=== PATIENT | male | born 1945 | race Caucasian/White ===

== ENCOUNTER 2019-09-16 08:52 | Emergency (ER) | payer OTHER, SELFPAY ==
[2019-09-16 08:59] VITALS: BP 145/84; PULSE 56; RESP 16; TEMP 36.6; O2SAT 100
--- NOTE | 2019-09-16 09:02 | ED.GENADUL_ITS ---
Discharge Plan Disposition Patient Disposition: HOME Condition: Stable Discharge Details Chief Complaint: Orthopedic Clinical Impression: Suprapatellar effusion of knee, S/P arthrocentesis Primary Care Provider: Greta,Local ED Provider: Radha Miller Home Meds and New Rx's Prescriptions: No Action No Known Home Meds RF: 0 Discharge Instructions Instructions: Swollen Knee Joint (ED), Joint Aspiration (DC) Additional Instructions: Rest, ice, and elevate the affected area as much as possible. Alternate tylenol and motrin as needed and directed for pain. You can wash the area with soap and water. Keep covered with Carmine wrap to help with compression as much as possible. Follow-up with orthopedics if you have no relief or worsening of symptoms in the next 1 to 2 weeks. Return to the emergency department with any worsening or new concerning symptoms. Referrals: Jag White MD [ [facility] STAFF PHYSICIAN] - Discharge Data Discharge Date/Time-TO BE ENTERED AT DEPARTURE: 09/16/19 11:14 Discharge Physician: Radha Miller Medical Decision Making 74-year-old male presents for right knee pain and swelling after going running 5 days ago. Right knee anterior edema, most prominent suprapatellar and infrapatellar. No ligamentous instability. Neurovascularly intact. No evidence of trauma or cellulitis. Suspect knee strain/sprain. History and presentation not c/w septic arthritis, dvt. Patient referred for x-ray which noted effusion. Pt agreeable to plan for arthrocentesis which was performed at bedside. Please see procedure note for details. Fluid appeared yellowish-brown and minimally cloudy. Depo-Medrol injected into right knee. Do not see an indication for antibiotics. Injection site covered with Band-Aid. Patient was able to weight-bear with improvement of symptoms after arthrocentesis. An Carmine wrap was applied to the right knee. Advised to follow- up with Ortho if symptoms do not improve. Usual and customary return precautions given prior to discharge. Medical Records Medical records reviewed: Yes I reviewed the patient's medical records. Imaging Data Radiologic Study: Radiologist's impression: XR Left Knee Exam date and time: 09/16/2019 9:35 AM Age: 74 years old Clinical indication: Other: R knee swelling, pain, suspect effusion TECHNIQUE: Imaging protocol: XR Left knee. Views: 4 or more views. COMPARISON: No relevant prior studies available. FINDINGS: Bones/joints: No acute fracture or dislocation. Large suprapatellar joint effusion. Soft tissues: Normal. IMPRESSION: 1. No acute fracture or dislocation. 2. Large suprapatellar joint effusion. HPI General Mode of arrival: ambulatory . Date/Time Provider Initiated Documentation: 09/16/19 08:53 . Limitations to Documentation: no limitations . Information obtained by: patient . HPI Narrative: Patient is a 74-year-old male who presents with right knee pain and swelling for the past 5 days after he went running. He denies any known specific injury but states he has developed some pain since then and now worsening swelling today. He is having increased pain with weightbearing and walking. He has taken Advil without relief. Denies any calf pain or swelling. Related Data Home Medications Medication Instructions Recorded Confirmed Unknown [No Known Home Meds] 09/16/19 09/16/19 Allergies Allergy/AdvReac Type Severity Reaction Status Date / Time gluten Allergy GI and Unverified 09/16/19 08:58 Skin issues Review of Systems All systems reviewed & are unremarkable except as noted in HPI and below Constitutional Constitutional: Reports as per HPI, Denies chills and Denies fever(s) Eyes Eyes: Denies blurry vision ENT Ears, Nose, Mouth, and Throat: Denies dizziness, Denies sore throat and Denies throat swelling Cardiovascular Cardiovascular: Denies chest pain and Denies dyspnea Respiratory Respiratory: Denies cough and Denies dyspnea Gastrointestinal Gastrointestinal: Denies abdominal pain, Denies diarrhea and Denies vomiting Genitourinary Genitourinary: Denies hematuria and Denies dysuria Musculoskeletal Musculoskeletal: Denies back pain and Denies numbness Integumentary/Breasts Skin/Breast: Denies lesions and Denies rash Neurologic Neurologic: Denies dizziness, Denies localized weakness and Denies numbness Allergic/Immunologic Allergic/Immunologic: Denies throat swelling [facility] Medical History (Updated 09/16/19 @ 10:57 by Radha Miller DO) No significant past medical history (Acute) Surgical History (Updated 09/16/19 @ 10:57 by Radha Miller DO) No significant past surgical history (Acute) Social History Smoking/Tobacco Use Status: Never Alcohol Intake: current Alcohol Intake frequency: 0-2 drinks per day Alcohol type: wine Substance use type: does not use Do you feel safe at home: Yes Do you feel safe in your relationship?: Yes Exam Const General: cooperative, healthy appearing and no acute distress HENMT Head: normal to inspection Mouth: oral mucosae normal Eyes General: appearance normal, both eyes and all related structures Neck Neck: normal visual inspection Resp Effort & Inspection: normal respiratory effort and able to speak in complete sentences Cardio Rate: regular rate Skin General skin exam: no rashes or lesions noted Neuro General: patient alert, patient awake and patient oriented x3 Motor: muscle tone normal throughout Extrem Other: Right lower extremity: Right anterior knee edema noted suprapatellar and infrapatellar. Pain with range of motion at right knee, more specifically flexion. Negative anterior and posterior drawer test. No pain with valgus or varus stress. No obvious ligamentous instability. No pain with range of motion at right hip or right ankle. No calf tenderness or lower leg edema. Right DP/PT pulses intact. Psych Appearance: grossly normal Affect: normal affect Procedures Joint Aspiration/Injection Joint Asp./Inject. 1: Time Out Performed: Yes Side of body: right Joint Aspirated: knee Ultrasound Guidance: No Skin Prep: Chlorhexidene Local Anesthetic: Lidocaine 1% Amount of anesthesia used (mL): 5 Needle Size Used: 18G Fluid Obtained: turbid Total fluid obtained (mL): 75 Medication Injected, if any: Methylprednisolone Amount of Medication Injected (mls): 1 Patient Tolerated Procedure: well Complications: none
--- NOTE | 2019-09-16 09:35 | DI.RAD_ITS ---
EXAM: XR KNEE RT 4V AP,LAT,JOSSELIN,PAT CLINICAL HISTORY: R knee swelling, pain, suspect effusion. TECHNIQUE: 2D digital imaging was performed. COMPARISON: No exams were available for comparison FINDINGS: BONES: No acute fracture is present. No bony destructive lesion is seen. JOINTS: The knee is normally aligned. Large suprapatellar joint effusion. SOFT TISSUE: Normal. IMPRESSION: Large suprapatellar joint effusion. DATA REPOSITORY: RADIATION DOSE DELIVERED:
--- NOTE | 2019-09-16 10:02 | DI.VRAD_ITS ---
PROCEDURE INFORMATION: Exam: XR Left Knee Exam date and time: 09/16/2019 9:35 AM Age: 74 years old Clinical indication: Other: R knee swelling, pain, suspect effusion TECHNIQUE: Imaging protocol: XR Left knee. Views: 4 or more views. COMPARISON: No relevant prior studies available. FINDINGS: Bones/joints: No acute fracture or dislocation. Large suprapatellar joint effusion. Soft tissues: Normal. IMPRESSION: 1. No acute fracture or dislocation. 2. Large suprapatellar joint effusion. Dictated and Authenticated by: Nia Granados MD. Ordering:CHRISTIAN Garcia MD
[2019-09-16] MEDS: Lidocaine 1% Multi-Dose 50 ML VIAL (10:57)
[2019-09-16] MEDS: methylPREDNISolone ACETATE 80 MG/ML VIAL IJ (10:58)
[2019-09-16 12:04] LABS: Clarity Cloudy; Source R KNEE
[2019-09-16 12:12] LABS: Nucleated Cells 19870 /MM3 (0-0)
[2019-09-16 12:44] LABS: Mononuclear Cells 3 % (0-0); Polynuclear Cells 97 % (0-0)
== END 2019-09-16 11:14 | disposition home or self-care (01) ==
LOC: ER 11:05
PROVIDERS: Emergency Provider Physician Assistant
DX: M25.461 Effusion, right knee (principal)
CPT/HCPCS: 20610; 99283; 73564; 87070; 87205; 89051; J1040; J3490

== ENCOUNTER 2019-09-26 13:54 | Emergency (ER) | payer OTHER, SELFPAY ==
[2019-09-26 14:08] VITALS: BP 131/78; PULSE 61; RESP 16; TEMP 36.5; O2SAT 99
--- NOTE | 2019-09-26 14:33 | W.ED.GENAD ---
Discharge Plan Disposition Patient Disposition: HOME Condition: Good Discharge Details Chief Complaint: Orthopedic Clinical Impression: S/P arthrocentesis, Effusion, right knee Primary Care Provider: Greta,Local ED Provider: Jessica Orozco Home Meds and New Rx's Prescriptions: No Action No Known Home Meds RF: 0 Discharge Instructions Instructions: Swollen Knee Joint (ED) Additional Instructions: Encourage rest, ice, elevation, compression. Tylenol and/or ibuprofen as needed for discomfort. Your knee has been drained once again. I would like for you to follow-up with orthopedics. Please call orthopedics, number listed below, to schedule follow-up appointment. If you develop fever/chills, increased pain, redness, warmth or new/worsening symptom please seek care urgently once again. Referrals: Jag White MD [ [facility] STAFF PHYSICIAN] - Discharge Data Discharge Date/Time-TO BE ENTERED AT DEPARTURE: 09/26/19 16:57 Medical Decision Making Patient is a pleasant 74-year-old gentleman presenting today with recurrent right knee swelling. He was seen here few days ago at which time his knee was tapped. He had an onset of pain after running for several days in a row. At that point, knee was injected and patient reports that he is remained pain-free since that time. He has not noted any erythema. No fevers or chills. Is not been having difficulty with ambulation. He reports that he only has discomfort in the knee with rotational movements. He has not been running. He has been elevating and icing the knee. He has not been using any type of compression. On exam, patient appears nontoxic. Vital signs are within normal limits. He is afebrile. No erythema. He is ambulating without any evidence of discomfort. He has good range of motion. He does have a moderate effusion. 2+ distal pulses. No calf tenderness. Sensation is intact. Spoke with orthopedics. They feel that the effusion is likely associated with a meniscal tear that is exacerbated with the patient's of prescribed rotational injuries. Advised the pain is likely controlled secondary to the steroid injection. As patient has no discomfort, fevers, redness, advised that this unlikely to be an infection. Dr. White did advise that should the patient have been in clinic, he would have during the need to help with discomfort and will happily follow-up with the patient in clinic. I did discuss this plan with the patient who is in agreement for repeat arthrocentesis. As he was injected to recently, we will not repeat this once again. Out of abundance of precaution, I did screen the patient for infection. He has no white count. Lactate is normal. His CRP and ESR are elevated at 1.9 and 37 respectively. Please see procedure note. Patient tolerated this very well. Using standard sterile technique, 50 cc of joint fluid was aspirated. Fluid was clear. Carmine wrap was applied to help with compression. Fluid was noted to be clear. WC [id number], down from 19,000. Patient with follow-up with orthopedics. Encourage rest, ice, elevation. Tylenol and ibuprofen as needed for discomfort. We will continue to wrap the knee for swelling. He will call orthopedics tomorrow to schedule appointment. All his questions or concerns were addressed and is in agreement this plan. He will return with any new or worsening symptoms. HPI General Mode of arrival: ambulatory. Date/Time Provider Initiated Documentation: 09/26/19 14:33. Limitations to Documentation: no limitations. Information obtained by: patient and RN notes reviewed. History of Present Illness 74 year old M presents to the emergency department with the chief complaint of Right knee effusion, described as mild (Denies any pain currently, states only with rotational movements), Quality is described as aching, and is localized to the right and lower extremity. Patient reports no radiation. Patient started experiencing this day(s) and it has been constant. No relieving factors improve symptom(s), Movement worsens symptoms (Rotational movements of the knee) . Patient notes no other symptoms.; denies chest pain, cough, diaphoresis, fever/chills, rash, shortness of breath and weakness. Patient did receive the following treatments prior to arrival, none Related Data Home Medications Medication Instructions Recorded Confirmed Unknown [No Known Home Meds] 09/16/19 09/26/19 Allergies Allergy/AdvReac Type Severity Reaction Status Date / Time gluten Allergy GI and Unverified 09/26/19 14:14 Skin issues General Stated Complaint: Orthopedic FOUZIA: 4 Review of Systems Constitutional Constitutional: Reports as per HPI, Denies chills, Denies fever(s), Denies headache(s) and Denies weakness ENT Ears, Nose, Mouth, and Throat: Denies headache(s) Cardiovascular Cardiovascular: Reports as per HPI Respiratory Respiratory: Reports as per HPI and Denies cough Musculoskeletal Musculoskeletal: Reports as per HPI and Denies tingling Integumentary/Breasts Skin/Breast: Reports as per HPI, Denies rash and Denies wounds Neurologic Neurologic: Reports as per HPI, Denies headache(s), Denies tingling, Denies paresthesias and Denies weakness [facility] Medical History (Updated 09/26/19 @ 16:44 by ADRYAN Sun) No significant past medical history (Acute) Surgical History (Updated 09/26/19 @ 16:44 by ADRYAN Sun) No significant past surgical history (Acute) Social History Smoking/Tobacco Use Status: Never Alcohol Intake: current Alcohol Intake frequency: 0-2 drinks per day Alcohol type: wine Substance use type: does not use Do you feel safe at home: Yes Do you feel safe in your relationship?: Yes Exam Const General: cooperative, healthy appearing, comfortable, no acute distress, well developed and well groomed Nutritional Appearance: average body habitus and well nourished Orientation: alert and awake Resp Effort & Inspection: normal respiratory effort, able to speak in complete sentences and no respiratory distress Cardio Rate: regular rate Rhythm: regular rhythm Skin General skin exam: no rashes or lesions noted Lesions: no lesions Rashes: no rashes Trauma: no lacerations or abrasions Neuro General: patient alert and patient awake Cognition: normal cognition Speech: speech normal Gait: normal gait Motor: muscle tone normal throughout Sensory Exam: no sensory deficits noted Extrem Right lower extremity: full ROM, normal capillary refill, hip/thigh Details: normal to inspection, knee Details: abnormal to inspection (Moderate effusion), swelling, normal ROM, knee ligament exam normal and Yarely's Test (Unable to perform secondary to swelling); no tenderness, no lacerations, no ecchymosis, no crepitus, no deformity and no unusual warmth, lower leg Details: normal to inspection, localized swelling and no edema; no palpable cords, no abrasions, no lacerations, no ecchymosis, no crepitus and no deformity, ankle Details: normal to inspection and foot Details: normal capillary refill and vascular exam Details: dorsalis pedis pulse present and normal capillary refill Psych Appearance: grossly normal and well kempt Mental Status: mental status grossly normal Speech and Movement: speech and movement normal Course Vital Signs Vital signs: Vital Signs Temperature 36.5 C 09/26/19 14:08 Pulse 61 09/26/19 14:08 Respiratory Rate 16 09/26/19 14:08 Blood Pressure 131/78 09/26/19 14:08 Pulse Oximetry 99 09/26/19 14:08 Temperature 36.5 C 09/26/19 14:08 Pulse 61 09/26/19 14:08 Respiratory Rate 16 09/26/19 14:08 Respiratory Effort Non-Labored 09/26/19 14:11 Blood Pressure 131/78 09/26/19 14:08 Blood Pressure Position Sitting 09/26/19 14:08 Pulse Oximetry 99 09/26/19 14:08 Oxygen Delivery Method Room Air 09/26/19 14:08 Oxygen Flow Rate 0 09/26/19 14:08 Pain Level 0 09/26/19 14:12 Procedures Joint Aspiration/Injection Joint Asp./Inject. 1: Time Out Performed: Yes Side of body: right Joint Aspirated: knee Ultrasound Guidance: No Skin Prep: sterile prep and drape Needle Size Used: 18G Fluid Obtained: clear Total fluid obtained (mL): 50 Patient Tolerated Procedure: well Complications: none
[2019-09-26 15:12] LABS: Abs Immature Grans 0.01 10^3/uL (0.0-0.06); Absolute Basophil Count 0.03 10^3/uL (0.0-0.2); Absolute Eosinophil Count 0.05 10^3/uL (0.0-0.7); Absolute Lymphocyte Count 1.83 10^3/uL (1.2-3.4); Absolute Monocyte Count 0.56 10^3/uL (0.1-0.8); Absolute Neutrophil Count 4.35 10^3/uL (1.2-6.7); Basophils % 0.4; Eosinophils % 0.7; HCT 41.8 % (40.0-50.0); HGB 13.6 g/dL (13.5-17.5); Immature Grans % 0.1; Lactate 0.6 mmol/L (0.6-1.4); Lymphocytes % 26.8; MCH 30.1 pg (27.0-33.0); MCHC 32.5 % (32.0-36.0); MCV 92.5 fL (80-95); MPV 9.1 fL (8.0-11.0); Monocytes % 8.2; Neutrophils % 63.8; Nucleated RBC 0 %; Platelet Count 223 10^3/uL (130-400); RBC 4.52 10^6/uL (4.36-5.78); RDW 12.8 % (11.8-14.1); RDW-SD 43.8 fL; WBC 6.83 10^3/uL (4.4-10.8)
[2019-09-26 16:02] LABS: ALT 21 U/L (16-63); AST 24 U/L (15-37); Albumin 3.4 g/dL (3.4-5.0); Alkaline Phosphatase 43 U/L (46-116); Anion Gap 6.9 mmol/L (3-11); BUN 13 mg/dL (7-18); Bilirubin, Total 0.7 mg/dL (0.2-1.0); C-Reactive Protein 1.19 mg/dL (0.0-0.3); CO2 30.1 mmol/L (21.0-32.0); CREATININE 0.89 mg/dL (0.70-1.30); Chloride 104 mmol/L (98-107); Glucose 100 mg/dL (74-106); Sodium 141 mmol/L (136-145); Total Protein 7.1 g/dL (6.4-8.2)
[2019-09-26 16:12] LABS: ESR 37 mm/hr (1-20)
[2019-09-26 16:45] VITALS: BP 140/80; PULSE 59; RESP 16; TEMP 37; O2SAT 96
[2019-09-26 17:47] LABS: Clarity Clear; Nucleated Cells 4715 uL (0)
[2019-09-26 18:03] LABS: Mononuclear Cells 10 %; Polynuclear Cells 90 %
== END 2019-09-26 16:57 | disposition home or self-care (01) ==
PROVIDERS: Emergency Provider Physician Assistant
DX: M25.461 Effusion, right knee (principal)
CPT/HCPCS: 20610; 36415; 80053; 85652; 99283; 83605; 85025; 86140; 87070; 87205; 89051; 89060; 99282